=== PATIENT | female | born 1980 | race Caucasian/White ===

== ENCOUNTER 2017-03-09 21:20 | Inpatient (IN) | payer BC ==
[~2017-03-09] VITALS: Ht 167.6 cm; Wt 96.4 kg
[~2017-03-09 21:20] MED LIST: CEPH500C PO
[2017-03-09] MEDS ORDERED: LACTATED RINGER'S 1000ML 1,000 ML IV PRN (21:49)
[2017-03-09] MEDS ORDERED: LACTATED RINGER'S 1000ML 1,000 ML IV SCH (21:49)
[2017-03-09] MEDS ORDERED: FENTANYL CITRATE INJ 50 MCG/1 ML 2 ML VIAL ONE (22:07)
[2017-03-09] MEDS ORDERED: FENTANYL 2MCG/ML ROPIV 1.25MG/ML 100ML BAG EPI ONE (22:07)
[2017-03-09] MEDS ORDERED: EpHEDrine SULFATE INJ 50 MG/ML AMP ONE (22:07)
[2017-03-09] MEDS ORDERED: BUPIVACAINE 0.25% 30 ML VIAL ONE (22:07)
[2017-03-09 22:19] LABS: HEMATOCRIT 35.6 % (37-47); MEAN CELL VOLUME 85.2 fL (80-100); MEAN CORPUSCULAR HEMOGLOBIN 29.9 pg (25-34); MEAN CORPUSCULAR HGB CONC 35.1 g/dl (32-36); MEAN PLATELET VOLUME 9.7 fL (7.4-10.4); PLATELET COUNT 199 K/uL (130-400); RED BLOOD COUNT 4.18 M/uL (4.2-5.4); WHITE BLOOD COUNT 13.77 K/uL (4.8-10.8)
[2017-03-09] MEDS ORDERED: PRENTAB26 PO (22:27)
[2017-03-09] MEDS ORDERED: FOLI1TAB7 PO (22:27)
[2017-03-09 22:28] VITALS: Ht 167.6 cm; Wt 96.4 kg
[2017-03-09] MEDS ORDERED: OXYTOCIN 30 UNITS/500ML NSS IV ONE (22:46)
[2017-03-09] MEDS ORDERED: ACETAMINOPHEN/CODEINE 300/30MG TAB PO PRN ×2 (23:00)
[2017-03-09] MEDS ORDERED: HYDROCORTISONE ACETATE 25 MG SUPP PR PRN (23:00)
[2017-03-09] MEDS ORDERED: OXYTOCIN 30 UNITS/500ML NSS IV PRN (23:00)
[2017-03-09] MEDS ORDERED: SUPERCREAM 0.870 % 15GM JAR EXT PRN (23:00)
[2017-03-09] MEDS ORDERED: LANOLIN OINT EXT PRN ×2 (23:00)
[2017-03-09] MEDS ORDERED: OXYCODONE/ACETAMINOPHEN 5-325 TAB PO PRN (23:00)
[2017-03-09] MEDS: IBUPROFEN 600 MG TAB PO PRN (23:15)
--- NOTE | 2017-03-09 23:38 | HISTORY & PHYSICAL EXAMINATION ---
DATE OF ADMISSION: 03/09/2017 HISTORY OF PRESENT ILLNESS: The patient is a 36-year-old G3, P1, due date 03/10/2017 making her 39 weeks and 6 days who presented to labor and delivery in labor. The patient was examined and found to be 4 cm dilated. She had no shortness of breath, no chills, no fever. There was no rupture of membranes. There was no bloody show. heart rate was category 1. The patient was jose maria every 1-3 minutes. She was admitted in anticipation of labor. COURSE: Has been unremarkable. LABS: Blood type B positive, antibody negative, rubella immune, GBS negative. PAST MEDICAL HISTORY: Obesity class 1. PAST SURGICAL HISTORY: None. ALLERGIES: No known drug allergies. SOCIAL HISTORY: The patient denies smoking, drug or alcohol use. OBSTETRICAL/GYNECOLOGICAL HISTORY: The patient delivered a live female in 2006 weighing 6 pounds 13 ounces. PHYSICAL EXAMINATION: GENERAL: Well-developed, well-nourished white female in labor discomfort. HEART: S1, S2, regular rhythm and rate. LUNGS: Clear to auscultation bilaterally. ABDOMEN: Nontender, gravid. PELVIC: 4 cm, 100% effaced and minus 1. EXTREMITIES: No cyanosis, clubbing or edema. ASSESSMENT AND PLAN: A 36-year-old G3, P1, at term in labor. PLAN: Plan is to admit and anticipate vaginal delivery.
[2017-03-10] VITALS (7 sets, daily range): BP systolic 95–115; BP diastolic 64–76; PULSE 67–81; TEMP 36.4–36.9; O2SAT 97–99
--- NOTE | 2017-03-10 00:05 | DELIVERY SUMMARY ---
DATE OF OPERATION: 03/09/2017 The patient delivered a live infant female in left occiput anterior presentation. There was no nuchal cord. The patient earlier had spontaneous rupture of membranes, showing moderate meconium. Infant was delivered and placed on mother's abdomen. Cord was clamped after 1 minute. Infant's is 8 and 8. Cord blood was obtained and placenta was sent to pathology for pathological analysis. Placenta was spontaneously delivered. Inspection of the placenta showed it was meconium stained. Cord has 3 vessels. ESTIMATED BLOOD LOSS: 400 mL Inspection of the perineum showed first-degree midline laceration which was repaired with 2-0 Vicryl. All instruments were removed from the vagina including sponges and laps as well as needles and accounted for x2. Baby and mother are doing well in recovery. I attest to the content of the Intraoperative Record and any orders documented therein. Any exception s are noted below.
[2017-03-10] MEDS: BENZOCAINE 20% AER SPR 82.5 GM CAN EXT PRN (02:04)
[2017-03-10] MEDS: ACETAMINOPHEN 325 MG TAB PO PRN ×2 (02:05→21:47)
[2017-03-10] MEDS: IBUPROFEN 600 MG TAB PO PRN ×4 (04:28→19:08)
--- NOTE | 2017-03-10 07:42 | OB/GYN Progress Note ---
MOTHER SUPERIOR Progress Note Date of Service: Mar 10, 2017. Patient is seen and examined. She feels well, no complaints. Ambulating without dizziness Voiding without difficulty Tolerating regular diet with out N&V Bleeding is minimal No fever/ chills/ CP/ SOB/ N&V/ Leg pain Date Time Temp Pulse Resp B/P (MAP) Pulse Ox O2 Delivery O2 Flow Rate FiO2 03/10/17 04:20 36.4 76 18 115/74 (88) 98 Room Air 03/10/17 01:50 36.6 73 16 115/72 (86) 97 Room Air 03/10/17 01:50 97 Room Air Last 24 Hours Test 03/09/17 21:59 White Blood Count 13.77 K/uL Red Blood Count 4.18 M/uL Hemoglobin 12.5 g/dL Hematocrit 35.6 % Mean Corpuscular Volume 85.2 fL Mean Corpuscular Hemoglobin 29.9 pg Mean Corpuscular Hemoglobin Concent 35.1 g/dl RDW Standard Deviation 45.0 fL RDW Coefficient of Variation 14.6 % Platelet Count 199 K/uL Mean Platelet Volume 9.7 fL PE: General: Alert, orientedx3, NAD Abd: soft, NT, fundus firm, below Umbilicus Perineum intact, Lochia rubra minimal Ext; NT, no edema AP: 36 yo s/p , ppd# 1 VSS Afebrile doing well Continue routine care All questions were answered D/C home tomorrow
[2017-03-10] MEDS: PRENATAL VITAMIN TAB PO SCH (08:23)
[2017-03-10] MEDS: DOCUSATE SODIUM 100 MG CAP PO SCH ×2 (08:23→19:08)
[2017-03-10] MEDS: FERROUS SULFATE 325 MG TAB PO SCH (08:23)
[2017-03-10] MEDS ORDERED: BISACODYL 5 MG TABEC PO SCH (20:00)
[2017-03-11] MEDS: IBUPROFEN 600 MG TAB PO PRN ×2 (05:57→11:39)
[2017-03-11] MEDS ORDERED: BISACODYL 10 MG SUPP PR PRN (07:00)
[2017-03-11 07:26] LABS: HEMATOCRIT 34.9 % (37-47); MEAN CELL VOLUME 87.7 fL (80-100); MEAN CORPUSCULAR HEMOGLOBIN 29.9 pg (25-34); MEAN CORPUSCULAR HGB CONC 34.1 g/dl (32-36); MEAN PLATELET VOLUME 9.7 fL (7.4-10.4); PLATELET COUNT 172 K/uL (130-400); RED BLOOD COUNT 3.98 M/uL (4.2-5.4)
[2017-03-11 08:00] VITALS: BP 131/69; PULSE 69; TEMP 36.6
[2017-03-11] MEDS: PRENATAL VITAMIN TAB PO SCH (09:09)
[2017-03-11] MEDS: FERROUS SULFATE 325 MG TAB PO SCH (09:09)
[2017-03-11] MEDS: DOCUSATE SODIUM 100 MG CAP PO SCH (09:09)
[2017-03-11] MEDS ORDERED: MTR600X PO (09:41)
--- NOTE | 2017-03-11 09:42 | Discharge Instructions ---
Discharge Instructions Date of Service Mar 11, 2017. Admission Reason for Admission: Discharge Discharge Diagnosis / Problem: TERM DELIVERED Discharge Goals Goal(s): Routine recovery after delivery Activity Recommendations Activity Limitations: as noted below Lifting Limitations: no more than 10 pounds Exercise/Sports Limitations: gradually increase as tolerated May Resume Sexual Activity: after follow-up appointment Shower/Bathe: no limitations Driving or Machine Use: resume 3 days after discharge . Instructions / Follow-Up Instructions / Follow-Up ACTIVITY RECOMMENDATIONS: * Gradual return to full activity over the next 2-3 weeks. * No lifting - nothing heavier than baby over the next 2-3 weeks. * Do not engage in vigorous exercise, sexual activity or sports until cleared by your physician. * Do not drive or operate any motorized equipment until cleared by your physician. * You may shower/bathe daily. BREAST CARE: If you are not breast feeding: * Wear a supportive bra 24 hours a day for one to two weeks. * Avoid stimulating your breasts and nipples as much as possible during the first few weeks after delivery. * When taking a shower, have the warm water hit your back, not breasts. * When your breasts feel full, apply ice packs. Usually three to four times a day helps ease the discomfort. * Take a mild pain medication (Tylenol/Motrin) when you are uncomfortable. If breast feeding: * Use breast milk to lubricate nipples. Lansinoh cream may be used for sore nipples. You do not need to remove cream prior to breast feeding. If using a different brand of cream, check the label for directions regarding removal of cream prior to nursing. * Wear a supportive bra. * If having problems with breasts or breast feeding, call a technology consultant or your health care provider. EPISIOTOMY CARE: After delivery, if you have an episiotomy (stitches), the following steps will ease discomfort and aid healing. * For the first 24 hours after delivery, place ice packs next to your episiotomy to help reduce swelling. * After the first 24 hour-period, sitz baths, either portable or in the tub, are suggested. A shower with a shower arm sprayed over the episiotomy may be comforting. * Anabel care should be done after each voiding and bowel movement. Squirt warm water from a plastic bottle over the perineum (region of the body between the anus and urinary opening) and pat dry. * Use Dermoplast to ease discomfort. Shake container. [place] directly over the episiotomy. * Place a Tucks on a clean sanitary pad next to your episiotomy. OVER THE COUNTER MEDICATION: * For discomfort or pain, you may use Acetaminophen (Tylenol), Ibuprofen (Advil ), or Naproxen (Aleve) following the package directions. * For constipation you may use Colace following the package directions. SPECIAL CARE INSTRUCTIONS: When you are discharged from the hospital, it is important for you to follow the instructions listed below: * During the first week at home, you should be able to care for yourself and your baby. In addition, the usual light household activities are encouraged. * Limit your activities to the way you feel. Do not try to clean the house or move furniture. Be sensible. * If you actively engage in sports and have done so up until the time of your delivery, you may resume these activities as soon as you feel able. This may take up to one month or even longer. Use good judgment. * Continue to take your vitamins for at least six weeks after the of your baby. * Your diet need not be limited unless you were on a special diet before your delivery. Breast-feeding mothers need around 2500 calories per day and at least 64-80 ounces of fluid per day (8 to 10 glasses). * You should eat foods from the four major food groups. Crash diets or fad diets are to be avoided. Eating lean meats, fresh fruits and vegetables, low-fat dairy products, high fiber foods and a regular exercise program, will help you get back to your pre- weight without putting your health at risk. * Constipation is sometimes a problem after delivery. Take a mild laxative as needed. If breast feeding, Milk of Magnesia is acceptable to use. You may use a suppository or Fleets enema if no episiotomy. * A daily shower or tub bath is suggested. Be sure to thoroughly and gently dry the perineum. * A bloody vaginal discharge will usually continue until around four weeks post . A small amount of bleeding may continue for as long as six weeks. Vaginal discharge changes from the bright red bleeding after delivery to pink then brownish and finally yellowish-pink before becoming white and disappearing. * Bleeding may increase with activity. Your first period may come in 4-8 weeks. If you are breast feeding, your period may be delayed even longer. * Klein (sex) can begin whenever both you and your partner feel comfortable and do not have any form of genital infection. It is recommended that you wait until after your return appointment and discuss with your physician. If you have questions, please talk to your health care practitioner. A condom should be used to prevent infection and . * Foreplay, gentle intercourse and lubrication is very important the first several times to prevent pain. A water-based lubricant such as K-Y jelly or Astroglide may be used. * Tampons may be used six weeks after delivery. * Douching should be avoided for 6 weeks after delivery. * If you have RH negative blood and your baby is RH positive, you will receive RHOGAM by injection prior to discharge. The nurse will give you a card to keep with you that has the date and place that you received RHOGAM after delivery. * During your care, you had a Rubella screen done to check for the presence of rubella antibodies in your blood. If your test was negative, you will receive a Rubella vaccine prior to discharge. This vaccine may cause a fever, soreness at the injection site and flu-like symptoms. If these symptoms persist, notify your health care practitioner. is not advised for three months after a Rubella vaccine. There is a higher chance of having a baby with defects if conceived within three months of getting the vaccine. * If you were discharged 24 hours from delivery or before 48 hours: Visiting nurses will come to your home 48 hours after discharge to assess you and your baby. The visiting nurse will meet with you while you are in the hospital to arrange a time and get directions to your home. * Verbalizes understanding of car seat law as reviewed with patient nursing. * Car Seat hand-out given and reviewed with patient by nursing. * Shaken baby information reviewed with patient by nursing. Call you doctor if: * Heavy bleeding (saturating several pads an hour) or passing clots the size of your fist. * A fever >101 degrees F (38.3 degrees C) on two occasions four hours apart and/or chills. * Unusual pain in the pelvic or vaginal areas. * "Baby Blues" lasting longer than two weeks. If you have any questions or concerns, call your health care practitioner at . FOLLOW-UP VISIT: * Please call the office at to schedule a 6 week examination. It is important you keep this appointment. * It is important for you to make arrangements for either yearly or twice yearly check-ups thereafter. Current Hospital Diet Patient's current hospital diet: Regular OB Diet Discharge Diet Recommended Diet: Regular Diet, Regular OB Diet Pending Studies Studies pending at discharge: no Medical Emergencies . Who to Call and When: Medical Emergencies: If at any time you feel your situation is an emergency, please call 911 immediately. . Non-Emergent Contact Non-Emergency issues call your: Primary Care Provider . . "Provider Documentation" section prepared by Jonas Schaeffer. . VTE Core Measure Inpt VTE Proph given/why not?: Treatment not indicated
--- NOTE | 2017-03-11 10:04 | OB/GYN Progress Note ---
REGULATORY AFFAIRS DIRECTOR Progress Note Date of Service Mar 11, 2017. Subjective conversation w/ patient Ambulation: ambulating normally Voiding: no voiding problems Passing Gas: Yes Diet Tolerance: Regular Diet Lochia: Small Feeding Type: Breast Feeding Objective Vital Signs Date Time Temp Pulse Resp B/P (MAP) Pulse Ox O2 Delivery O2 Flow Rate FiO2 03/11/17 08:00 36.6 69 18 131/69 (89) Room Air 03/10/17 23:25 Room Air 03/10/17 23:25 36.5 69 18 107/74 (85) Room Air 03/10/17 20:14 Room Air 03/10/17 20:11 36.9 80 16 111/73 (86) 99 Room Air 03/10/17 16:00 36.6 73 16 108/74 (85) Room Air 03/10/17 16:00 Room Air 03/10/17 11:40 36.9 81 18 112/76 (88) 97 Room Air Physical Exam General Appearance: WELL-APPEARING, NO APPARENT DISTRESS Abdomen: non tender Fundus: Firm Extremities: non-tender Laboratory Results Last 24 Hours Test 03/11/17 06:35 White Blood Count 9.20 K/uL Red Blood Count 3.98 M/uL Hemoglobin 11.9 g/dL Hematocrit 34.9 % Mean Corpuscular Volume 87.7 fL Mean Corpuscular Hemoglobin 29.9 pg Mean Corpuscular Hemoglobin Concent 34.1 g/dl RDW Standard Deviation 48.2 fL RDW Coefficient of Variation 14.9 % Platelet Count 172 K/uL Mean Platelet Volume 9.7 fL Assessment and Plan Post- Day Number: 2 Continue Routine Care: discharged
[2017-03-11] MEDS: BENZOCAINE 20% AER SPR 82.5 GM CAN EXT PRN (11:39)
[2017-03-11 11:56] VITALS: BP_DIAS 69; PULSE 69; TEMP 36.6
== END 2017-03-11 11:56 | disposition home or self-care (01) | DRG 775 ==
LOC: C.OPB 21:20 → C.LD 21:20 → C.OPB 21:49 → C.LD 21:49 → C.OBG 03-10 01:46
PROVIDERS: ADMIT Obstetrics & Gynecology; ATTEND Obstetrics & Gynecology
PROC: 10E0XZZ Delivery of Products of Conception, External Approach (ICD-10-PCS; principal; 2017-03-09)
PROC: 0HQ9XZZ Repair Perineum Skin, External Approach (ICD-10-PCS; principal; 2017-03-09)
DX: O42.02 Full-term premature rupture of membranes, onset of labor within 24 hours of rupture (principal); O70.0 First degree perineal laceration during delivery; Z3A.39 39 weeks gestation of pregnancy; O09.523 Supervision of elderly multigravida, third trimester; O99.214 Obesity complicating childbirth; Z37.0 Single live birth; Z68.34 Body mass index [BMI] 34.0-34.9, adult